=== PATIENT | male | born 1950 | race Caucasian/White ===

== ENCOUNTER 2017-09-04 11:32 | Day surgery (SDC) | payer MEDICARE, OTHER ==
[~2017-09-04] VITALS: Ht 182.9 cm; Wt 121.3 kg
[~2017-09-04 11:32] MED LIST: ALPR.5 PO; AMLO5 PO; ASPI325EC PO; ASPI81CH PO; ATEN50; BUSP10 PO; CLOP75 PO; IBUP200; ISOMON20 PO; LISI5 PO; METO50 PO; Metoprolol Tart25 MG PO; NITR.3SL; RANI150 PO; ROSU10TA PO
== END 2017-09-04 14:44 | disposition home or self-care (01) ==
LOC: ORSCSDS 11:32
PROVIDERS: Internal Medicine Gastroenterology
PROC: 0DBM8ZX Excision of Descending Colon, Via Natural or Artificial Opening Endoscopic, Diagnostic (ICD-10-PCS; principal; 2017-09-04 13:00)
PROC: 0DBL8ZX Excision of Transverse Colon, Via Natural or Artificial Opening Endoscopic, Diagnostic (ICD-10-PCS; principal; 2017-09-04 13:00)
DX: Z12.11 Encounter for screening for malignant neoplasm of colon (principal); D12.3 Benign neoplasm of transverse colon; D12.4 Benign neoplasm of descending colon; K64.8 Other hemorrhoids; K63.89 Other specified diseases of intestine; K57.30 Diverticulosis of large intestine without perforation or abscess without bleeding; Z86.010 Personal history of colon polyps; Z83.71 Family history of colonic polyps; I25.10 Atherosclerotic heart disease of native coronary artery without angina pectoris; I10 Essential (primary) hypertension; E78.00 Pure hypercholesterolemia, unspecified; I25.2 Old myocardial infarction; Z87.891 Personal history of nicotine dependence; Z79.01 Long term (current) use of anticoagulants; Z79.82 Long term (current) use of aspirin; Z79.899 Other long term (current) drug therapy
CPT/HCPCS: 88305; J2405; J7120

== ENCOUNTER 2019-02-06 09:34 | Day surgery (SDC) | payer MEDICARE, OTHER ==
[~2019-02-06] VITALS: Ht 182.9 cm; Wt 119.8 kg
[~2019-02-06 09:34] MED LIST changes: +Alprazolam0.5 MG PO; +Aspirin EC81 MG PO; +Coenzyme Q10200 M2 PO; +Isosorbide Mono60 MG PO; +METO25 PO; +Nitrostat0.4 MG SL; +SENN187 PO; +Zantac150 MG PO
--- NOTE | 2019-02-06 12:04 | NUR ---
02/06/[address] TOLD PT TO CHEW HIS ASPIRIN AND PLAVIX IN SDU. PT'S GAVE PT HIS PILLS AND PT CHEWED THEM DIRECTED.
== END 2019-02-06 12:06 | disposition home or self-care (01) ==
LOC: ORSCSDS 09:34
PROVIDERS: Internal Medicine Gastroenterology
PROC: 0DBK8ZX Excision of Ascending Colon, Via Natural or Artificial Opening Endoscopic, Diagnostic (ICD-10-PCS; principal; 2019-02-06 11:00)
PROC: 0DBN8ZX Excision of Sigmoid Colon, Via Natural or Artificial Opening Endoscopic, Diagnostic (ICD-10-PCS; principal; 2019-02-06 11:00)
PROC: 0DBL8ZX Excision of Transverse Colon, Via Natural or Artificial Opening Endoscopic, Diagnostic (ICD-10-PCS; principal; 2019-02-06 11:00)
DX: Z12.11 Encounter for screening for malignant neoplasm of colon (principal); Z86.010 Personal history of colon polyps; Z83.71 Family history of colonic polyps; D12.3 Benign neoplasm of transverse colon; D12.2 Benign neoplasm of ascending colon; K63.5 Polyp of colon; K64.8 Other hemorrhoids; K63.89 Other specified diseases of intestine; E78.00 Pure hypercholesterolemia, unspecified; I10 Essential (primary) hypertension; I25.10 Atherosclerotic heart disease of native coronary artery without angina pectoris; K57.30 Diverticulosis of large intestine without perforation or abscess without bleeding; Z87.891 Personal history of nicotine dependence; Z79.01 Long term (current) use of anticoagulants; Z79.82 Long term (current) use of aspirin; Z79.899 Other long term (current) drug therapy
CPT/HCPCS: 88305; J2704; J7120

== ENCOUNTER 2019-06-23 10:33 | Day surgery (SDC) | payer MEDICARE, OTHER ==
[~2019-06-23] VITALS: Ht 182.9 cm; Wt 123.1 kg
[2019-06-23] MEDS ORDERED: ELIQUIS5 MG PO (11:19)
[2019-06-23] MEDS ORDERED: DRON400T PO (12:25)
--- NOTE | 2019-06-23 13:42 | NUR ---
PT AND FAMILY VERBALIZES UNDERSTANDING WRITTEN AND VERBAL ORDERS. NEW RX CALLED TO [facility] VSS. HOUSE.
--- NOTE | 2019-06-23 14:07 | NUR ---
PT DISCHARGED PER W/C TO PRIVATE VEHICLE WITH ASSIST OF 1 STAFF. SALINE LOCK TAKEN OUT WITH SALINE LOCK INTACT, DRESSING APPLIED.
== END 2019-06-23 22:46 | disposition home or self-care (01) ==
LOC: MHTC 10:33
DX: I48.3 Typical atrial flutter (principal); I25.10 Atherosclerotic heart disease of native coronary artery without angina pectoris; I25.2 Old myocardial infarction; I10 Essential (primary) hypertension; E78.5 Hyperlipidemia, unspecified; J44.9 Chronic obstructive pulmonary disease, unspecified; I70.0 Atherosclerosis of aorta; E66.01 Morbid (severe) obesity due to excess calories; Z79.02 Long term (current) use of antithrombotics/antiplatelets; Z79.899 Other long term (current) drug therapy; Z87.891 Personal history of nicotine dependence; Z88.8 Allergy status to other drugs, medicaments and biological substances; Z68.37 Body mass index [BMI] 37.0-37.9, adult; Z95.5 Presence of coronary angioplasty implant and graft
CPT/HCPCS: 92960; 93005; 93010; 93312; 93325; J2250; J2704; J7030

== ENCOUNTER → 2019-12-29 | Outpatient (CLI) | payer MEDICARE, OTHER ==
[~2019-12-29] MED LIST changes: +DRON400T PO; +ELIQUIS5 MG PO
== END | disposition home or self-care (01) ==
LOC: LAB SHORT 07:39 → PLD 07:39
DX: J33.8 Other polyp of sinus (principal)
CPT/HCPCS: 88305

== ENCOUNTER 2020-08-05 06:55 | Day surgery (SDC) | payer MEDICARE, OTHER ==
[~2020-08-05] VITALS: Ht 182.9 cm; Wt 117.8 kg
== END 2020-08-05 09:21 | disposition home or self-care (01) ==
LOC: ORSCSDS 06:55
PROVIDERS: Internal Medicine Gastroenterology
PROC: 0DBL8ZX Excision of Transverse Colon, Via Natural or Artificial Opening Endoscopic, Diagnostic (ICD-10-PCS; principal; 2020-08-05 08:15)
PROC: 0DBM8ZX Excision of Descending Colon, Via Natural or Artificial Opening Endoscopic, Diagnostic (ICD-10-PCS; principal; 2020-08-05 08:15)
PROC: 0DBH8ZX Excision of Cecum, Via Natural or Artificial Opening Endoscopic, Diagnostic (ICD-10-PCS; principal; 2020-08-05 08:15)
DX: Z86.010 Personal history of colon polyps (principal); D12.3 Benign neoplasm of transverse colon; D12.0 Benign neoplasm of cecum; D12.4 Benign neoplasm of descending colon; K63.89 Other specified diseases of intestine; K57.30 Diverticulosis of large intestine without perforation or abscess without bleeding; K64.4 Residual hemorrhoidal skin tags; Z79.01 Long term (current) use of anticoagulants; I10 Essential (primary) hypertension; I25.10 Atherosclerotic heart disease of native coronary artery without angina pectoris; E78.00 Pure hypercholesterolemia, unspecified; Z79.899 Other long term (current) drug therapy
CPT/HCPCS: 88305; 93005; 93010; J0330; J0461; J2405; J2704; J7120

== ENCOUNTER → 2021-03-09 | Outpatient (CLI) | payer MEDICARE, OTHER | END | disposition home or self-care (01) | LOC: LAB 07:54 → LAB SHORT 07:54 | DX: L57.0 Actinic keratosis (principal) | CPT/HCPCS: 88305 ==

== ENCOUNTER 2021-08-26 09:47 | Day surgery (SDC) | payer MEDICARE, OTHER ==
[~2021-08-26] VITALS: Ht 182.9 cm; Wt 115.4 kg
[2021-08-26] MEDS ORDERED: NITR.4SL (10:27)
--- NOTE | 2021-08-26 10:54 | NUR ---
08/26/21 1054 Blanquita Hanks FIRST ATTEMPT MISSED BY LOTTIE IN THE RIGHT HAND. SECOND ATTEMPT MISSED BY RN IN THE RAC. THIRD ATTEMPT SUCCESSFUL IN RIGHT HAND BY LOTTIE
== END 2021-08-26 12:03 | disposition home or self-care (01) ==
LOC: ORSCSDS 09:47
PROVIDERS: Internal Medicine Gastroenterology
PROC: 0DBL8ZX Excision of Transverse Colon, Via Natural or Artificial Opening Endoscopic, Diagnostic (ICD-10-PCS; principal; 2021-08-26 11:15)
PROC: 0DBH8ZX Excision of Cecum, Via Natural or Artificial Opening Endoscopic, Diagnostic (ICD-10-PCS; principal; 2021-08-26 11:15)
DX: Z12.11 Encounter for screening for malignant neoplasm of colon (principal); Z86.010 Personal history of colon polyps; D12.0 Benign neoplasm of cecum; D12.3 Benign neoplasm of transverse colon; K63.89 Other specified diseases of intestine; K57.30 Diverticulosis of large intestine without perforation or abscess without bleeding; I25.2 Old myocardial infarction; Z83.71 Family history of colonic polyps; I25.10 Atherosclerotic heart disease of native coronary artery without angina pectoris; J44.9 Chronic obstructive pulmonary disease, unspecified; I10 Essential (primary) hypertension; E78.00 Pure hypercholesterolemia, unspecified; Z87.891 Personal history of nicotine dependence; Z79.899 Other long term (current) drug therapy
CPT/HCPCS: 88305; J2704; J7120

== ENCOUNTER → 2022-04-03 | Outpatient (CLI) | payer MEDICARE, OTHER ==
[~2022-04-03] MED LIST changes: +NITR.4SL
== END ==
LOC: LAB SHORT 17:36
DX: I10 Essential (primary) hypertension (principal)
CPT/HCPCS: 84443

== ENCOUNTER 2023-03-16 22:49 | Emergency (ER) | payer MEDICARE, OTHER ==
[~2023-03-16] VITALS: Ht 182.9 cm; Wt 114.8 kg
[2023-03-16 23:08] LABS: BASOPHILS ABSOLUTE AUTO 0.07 K/mm3 (0.00-0.23); BASOPHILS PERCENT AUTO 1 % (0-2); EOSINOPHILS ABSOLUTE AUTO 0.23 K/mm3 (0.00-0.68); EOSINOPHILS PERCENT AUTO 3 % (0-6); Hematocrit 45.3 % (37.0-53.0); Hemoglobin 15.3 g/dL (13.5-17.5); IMMATURE GRAN ABSOLUTE AUTO 0.05 K/mm3 (0.00-0.10); IMMATURE GRAN PERCENT AUTO 1 % (0-1); LYMPHOCYTES ABSOLUTE AUTO 2.76 K/mm3 (0.84-5.20); LYMPHOCYTES PERCENT AUTO 31 % (21-46); MONOCYTES ABSOLUTE AUTO 1.15 K/mm3 (0.16-1.47); MONOCYTES PERCENT AUTO 13 % (4-13); Mean Corpuscular HGB 33.3 pg (26.0-34.0); Mean Corpuscular HGB Conc 33.8 g/dL (31.5-36.5); Mean Corpuscular Volume 99 fL (80-100); Mean Platelet Volume 10.5 fL (9.1-12.4); NEUTROPHILS ABSOLUTE AUTO 4.71 K/mm3 (1.96-9.15); NEUTROPHILS PERCENT AUTO 52 % (41-73); Platelet Count 284 K/mm3 (150-400); RDW Coefficient Variation 13.2 % (11.7-14.2); RDW Standard Deviation 47.9 fL (35.1-46.3); Red Blood Cell Count 4.59 M/mm3 (4.30-5.90); White Blood Cell Count 8.97 K/mm3 (4.00-11.30)
[2023-03-16] MEDS ORDERED: FAMO20 PO (23:23)
[2023-03-16] MEDS ORDERED: LOSARTAN POTASS25 M2 PO (23:24)
[2023-03-16] MEDS ORDERED: ROSUVASTATIN CA20 MG PO (23:24)
[2023-03-16 23:25] LABS: Albumin, Blood 3.8 g/dL (3.4-5.0); Bun/Creatinine Ratio 17.9 (12.0-20.0); Creatinine, Blood 1.06 mg/dL (0.60-1.20); Globulin, Blood 3.8 g/dL (2.2-4.0); Potassium, Blood 3.9 mmol/L (3.5-5.5); Total Protein, Blood 7.6 g/dL (6.4-8.2)
[2023-03-16] MEDS ORDERED: Ventolin/Prove6.7 GM INH (23:25)
[2023-03-16] MEDS ORDERED: B12-FOLIC ACID1 EACH PO (23:27)
[2023-03-16] MEDS ORDERED: FLUTICASONE-SA1 EAC1 INH (23:27)
[2023-03-16] MEDS ORDERED: VITAMIN D310 MC4 (23:28)
[2023-03-17 02:00] VITALS: BP 147/104
== END 2023-03-17 02:00 | disposition home or self-care (01) ==
LOC: ER 22:49
PROVIDERS: Student in an Organized Health Care Education/Training Program
DX: I48.91 Unspecified atrial fibrillation (principal); Z88.8 Allergy status to other drugs, medicaments and biological substances; Z79.899 Other long term (current) drug therapy; I25.2 Old myocardial infarction; I25.10 Atherosclerotic heart disease of native coronary artery without angina pectoris; Z87.891 Personal history of nicotine dependence
CPT/HCPCS: 71045; 80053; 83880; 84484; 85025; 93005; 93010; 96374; 96376; 99285-25; A9270

== ENCOUNTER → 2025-03-18 | Outpatient (CLI) | payer MEDICARE, BC ==
[~2025-03-18] MED LIST changes: +B12-FOLIC ACID1 EACH PO; +FAMO20 PO; +FLUTICASONE-SA1 EAC1 INH; +LOSARTAN POTASS25 M2 PO; +ROSUVASTATIN CA20 MG PO; +VITAMIN D310 MC4; +Ventolin/Prove6.7 GM INH
== END ==
LOC: LAB 14:49 → LAB SHORT 14:49
DX: L03.116 Cellulitis of left lower limb (principal)
CPT/HCPCS: 87070; 87205